=== PATIENT | male | born 1970 | race African-American/Black ===

== ENCOUNTER 2019-10-23 17:15 | Emergency (ER) | payer OTHER ==
[~2019-10-23] VITALS: Ht 175.3 cm; Wt 74.6 kg
--- NOTE | 2019-10-23 18:26 | PHYS DOC ---
Past Medical History Past Medical History: Other Additional Past Medical Histor: multiple back injuries Past Surgical History: Other Additional Past Surgical Histo: back surgery x2, neck surgery Smoking Status: Current Every Day Smoker Additional Information: 4-5 cigarettes daily Alcohol Use: Occasionally General Adult EDM: Chief Complaint: PAIN CONTROL HPI: HPI: Patient is a 49 year old male who presents with complaint of right buttock pain that started yesterday. He states that he has pain that radiates down his right leg to his calf. He states that he has had recurrent flareups of this pain over the last several years. He has had numerous injuries to his lower back and tailbone in the past. Patient rates pain as very mild if he is just lying still but when he tries to move his right leg, he has a bolt pain that goes through the buttock. He describes it as almost like a sharp stab mixed with lightening going through the buttock. Patient states that he has been taking 800 of ibuprofen at a time and states that usually the pain is better but as soon as it wears off the pain is severe again. [] Review of Systems: Review of Systems: Constitutional: Denies fever or chills. [] Respiratory: Denies cough or shortness of breath. [] Cardiovascular: Denies chest pain or edema. [] Musculoskeletal: Complains of right buttock and lower back pain. [] : Complains of right testicle pain. [] Neurologic: Denies headache, focal weakness or sensory changes. [] Heart Score: Risk Factors: Risk Factors: DM, Current or recent (<one month) smoker, HTN, HLP, family history of CAD, obesity. Risk Scores: Score 0 - 3: 2.5% MACE over next 6 weeks - Discharge Home Score 4 - 6: 20.3% MACE over next 6 weeks - Admit for Clinical Observation Score 7 - 10: 72.7% MACE over next 6 weeks - Early Invasive Strategies Current Medications: Current Medications Medications (Trade) Dose Ordered Sig/Zenaida Start Time Stop Time Status Last Admin Dose Admin Dexamethasone Sodium Phosphate (Decadron) 10 mg 1X ONCE 10/23/19 18:30 10/23/19 18:31 Ketorolac Tromethamine (Toradol Im) 60 mg 1X ONCE 10/23/19 18:30 10/23/19 18:31 Orphenadrine Citrate (Norflex) 60 mg 1X ONCE 10/23/19 18:30 10/23/19 18:31 Allergies: Allergies: Allergies Coded Allergies Type Severity Reaction Last Updated Verified No Known Drug Allergies 10/23/19 No Physical Exam: PE: Constitutional: Well developed, well nourished, no acute distress, non-toxic appearance. [] HENT: Normocephalic, atraumatic, bilateral external ears normal, oropharynx moist, no oral exudates, nose normal. [] Eyes: PERRLA, EOMI, conjunctiva normal, no discharge. [] Neck: Normal range of motion, no tenderness, supple, no stridor. [] Cardiovascular: Regular rate and rhythm [] Lungs & Thorax: Bilateral breath sounds clear to auscultation [] Abdomen: Bowel sounds normal, soft, no tenderness. [] Skin: Warm, dry, no erythema, no rash. [] Extremities: No tenderness, no cyanosis, no clubbing, ROM intact. [] Neurologic: Alert and oriented X 3, no focal deficits noted. [] Current Patient Data: Vital Signs: Vital Signs Date Time Temp Pulse Resp B/P (MAP) Pulse Ox O2 Delivery O2 Flow Rate FiO2 10/23/19 17:30 98.1 74 16 145/87 (106) 100 Room Air 98.1 EKG: EKG: [] Radiology/Procedures: Radiology/Procedures: [] Impression: PROCEDURE: TESTICULAR/SCROTUM Testicular ultrasound History: Reason: right testicular pain / Comparison: None. Technique: Multiple grayscale, color flow Doppler and Doppler spectral analysis images of the scrotum are obtained. Findings: Right testicle measures 4.6 x 2.9 x 2 cm. Right testicle demonstrates normal parenchymal echogenicity. The right epididymis is unremarkable. Left testicle measures 4.3 x 2.8 x 1.8 cm. Left testicle demonstrates normal parenchymal echogenicity. The left epididymis is unremarkable. There is no hydrocele. There is mild right varicocele. There is no left varicocele. Scrotal hyperemia or swelling are not seen. Doppler imaging demonstrates normal flow to both testicles, without evidence of torsion. IMPRESSION: 1. No evidence of testicular mass or torsion. 2. Mild right varicocele. Electronically signed by: Ramu Farley MD (10/23/2019 6:55 PM) [facility] Course & Med Decision Making: Course & Med Decision Making Pertinent Labs and Imaging studies reviewed. (See chart for details) [] Sabino Disclaimer: Dragon Disclaimer: This electronic medical record was generated, in whole or in part, using a voice recognition dictation system. Departure Departure Impression: Primary Impression: Acute exacerbation of chronic low back pain Additional Impressions: Sciatica Qualified Codes: M54.31 - Sciatica, right side Sacroiliitis Varicocele Disposition: HOME, SELF-CARE Condition: STABLE Referrals: NO PCP (PCP) Patient Instructions: Back Pain, Adult, Form - Excuse from Work, School, or Physical Activity, Sciatica Scripts Indomethacin (INDOMETHACIN) 50 Mg Capsule 1 CAP PO TID PRN for PAIN for 10 Days, #30 CAP 0 Refills with food Prov: GUERRERO WADSWORTH Jr. DO 10/23/19 Prednisone (PREDNISONE) 50 Mg Tablet 1 TAB PO DAILY, #5 TAB Prov: GUERRERO WADSWORTH Jr. DO 10/23/19 Orphenadrine Citrate (ORPHENADRINE CITRATE) 100 Mg Tablet.er 1 TAB PO BID PRN for MUSCLE SPASMS, #14 TAB Prov: GUERRERO WADSWORTH Jr. DO 10/23/19 Hydrocodone/Apap 5-325 (NORCO 5-325 TABLET) 1 Each Tablet 1-2 EACH PO PRN Q6HRS PRN for PAIN, #15 as needed for pain Prov: GUERRERO WADSWORTH Jr. DO 10/23/19 Justicifation of Admission Dx: Justifications for Admission: Justification of Admission Dx: N/A GUERRERO WADSWORTH Jr. DO Oct 23, 2019 18:26
[2019-10-23 18:30] VITALS: BP_DIAS 105
[2019-10-23] MEDS ORDERED: ORPHENADRINE CITRATE 60 MG/2 ML VIAL. IM ONE (18:30)
[2019-10-23] MEDS ORDERED: DEXAMETHASONE SOD PHOS 20 MG/5 ML VIAL. IM ONE (18:30)
[2019-10-23] MEDS ORDERED: KETOROLAC 60 MG/2 ML VIAL. IM ONE (18:30)
--- NOTE | 2019-10-23 18:57 | RAD ---
Testicular ultrasound History: Reason: right testicular pain / Comparison: None. Technique: Multiple grayscale, color flow Doppler and Doppler spectral analysis images of the scrotum are obtained. Findings: Right testicle measures 4.6 x 2.9 x 2 cm. Right testicle demonstrates normal parenchymal echogenicity. The right epididymis is unremarkable. Left testicle measures 4.3 x 2.8 x 1.8 cm. Left testicle demonstrates normal parenchymal echogenicity. The left epididymis is unremarkable. There is no hydrocele. There is mild right varicocele. There is no left varicocele. Scrotal hyperemia or swelling are not seen. Doppler imaging demonstrates normal flow to both testicles, without evidence of torsion. IMPRESSION: 1. No evidence of testicular mass or torsion. 2. Mild right varicocele. Electronically signed by: Ramu Farley MD (10/23/2019 6:55 PM) [facility]
[2019-10-23 19:19] LABS: BILIRUBIN,URINE NEGATIVE (NEG); CLARITY,URINE CLEAR; COLOR,URINE YELLOW; NITRITE,URINE NEGATIVE (NEG); PH,URINE 6.5 (<5.0-8.0); PROTEIN,URINE NEGATIVE (NEG-TRACE); UROBILINOGEN,URINE 0.2 mg/dL (0.2 mg/dL)
[2019-10-23 19:27] LABS: BACTERIA,URINE 0 /HPF (0-FEW); RBC,URINE 0 /HPF (0-2); WBC,URINE RARE /HPF (0-4)
[2019-10-23 19:30] VITALS: BP_SYST 139
[2019-10-23] MEDS ORDERED: PRED50TA PO (20:18)
[2019-10-23] MEDS ORDERED: INDO50CA15 PO (20:18)
[2019-10-23] MEDS ORDERED: ORPH100T PO (20:18)
[2019-10-23] MEDS ORDERED: HYDR-3164 PO (20:18)
== END 2019-10-23 20:39 | disposition home or self-care (01) ==
LOC: ER 17:15
DX: G89.29 Other chronic pain (principal); M54.41 Lumbago with sciatica, right side; M46.1 Sacroiliitis, not elsewhere classified; I86.1 Scrotal varices; F17.210 Nicotine dependence, cigarettes, uncomplicated; Z98.890 Other specified postprocedural states
CPT/HCPCS: 76870; 81001; 87086; 96372; 99284; J1100; J1885; J2360

== ENCOUNTER → 2019-11-09 | Outpatient (CLI) | payer OTHER ==
[2019-10-23 18:30] VITALS: BP_DIAS 105
[2019-10-23 19:30] VITALS: BP_SYST 139
[~2019-11-09] MED LIST: HYDR-3164 PO; INDO50CA15 PO; ORPH100T PO; PRED50TA PO
--- NOTE | 2019-11-09 14:29 | KCIC ---
EXAM: Right hip, 2 views. HISTORY: Pain. COMPARISON: None. FINDINGS: 2 views of the right hip are obtained. There is no fracture, dislocation or subluxation. IMPRESSION: No acute osseous finding. Electronically signed by: Starla Shah MD (11/09/2019 2:26 PM) [id number]
== END ==
LOC: KCIC 13:24
PROVIDERS: ATTEND Family Medicine
DX: M25.551 Pain in right hip (principal)
CPT/HCPCS: 73502

== ENCOUNTER 2019-11-20 22:45 | Emergency (ER) | payer OTHER ==
[~2019-11-20] VITALS: Ht 175.3 cm; Wt 76.3 kg
[2019-11-20 23:26] LABS: BASO # 0.1 x10^3/uL (0.0-0.2); BASO % 1 % (0-3); EOS # 0.1 x10^3/uL (0.0-0.7); EOS % 2 % (0-3); HEMATOCRIT 38.7 % (39.0-53.0); LYMPH # 1.8 x10^3/uL (1.0-4.8); LYMPH % 30 % (24-48); MEAN CORPUSCULAR HEMOGLOBIN 31 pg (25-35); MEAN CORPUSCULAR HGB CONC 34 g/dL (31-37); MEAN CORPUSCULAR VOLUME 93 fL (79-100); MONO # 0.5 x10^3/uL (0.0-1.1); MONO % 8 % (0-9); NEUT # 3.5 x10^3/uL (1.8-7.7); NEUT % 59 % (31-73); PLATELET COUNT 247 x10^3/uL (140-400); RED BLOOD COUNT 4.16 x10^6/uL (4.30-5.70); RED CELL DISTRIBUTION WIDTH 12.4 % (11.5-14.5); WHITE BLOOD COUNT 5.9 x10^3/uL (4.0-11.0)
[2019-11-20] MEDS ORDERED: IV NORMAL SALINE 1000ML BAG 1,000 ML IV ONE (23:30)
[2019-11-20 23:42] LABS: CALCIUM 8.6 mg/dL (8.5-10.1); CREATININE 1.2 mg/dL (0.7-1.3); GFR 78.2; POTASSIUM 3.8 mmol/L (3.5-5.1)
[2019-11-20] MEDS ORDERED: CONTRAST GIVEN. MC PRN (23:45)
[2019-11-20 23:48] LABS: ALBUMIN 3.9 g/dL (3.4-5.0); ALBUMIN/GLOBULIN RATIO 1.1 (1.0-1.7); TOTAL BILIRUBIN 0.5 mg/dL (0.2-1.0); TOTAL PROTEIN 7.3 g/dL (6.4-8.2)
[2019-11-21] MEDS ORDERED: IOHEXOL 300 MG/ML 100ML VIAL. IV ONE (00:30)
--- NOTE | 2019-11-21 00:32 | PHYS DOC ---
Past Medical History Past Medical History: Other Additional Past Medical Histor: multiple back injuries Past Surgical History: Other Additional Past Surgical Histo: back surgery x2, neck surgery Smoking Status: Current Some Day Smoker Alcohol Use: Occasionally General Adult EDM: Chief Complaint: GROIN PAIN HPI: HPI: Patient is a 49 year old male presenting to the ED with a chief complaint of right groin pain. Patient states the pain is been present for the last 1-1/2 mo nths. Patient was seen in the ER October 19 and had an ultrasound which showed a right varicocele. Patient also was seen on 08 November and had a negative hip x- ray. Patient today complains of pain near the rectal area. Patient denies dysuria, penile discharge, and inguinal hernia. Patient denies any obvious injury.. Patient does have that he has a remote injury when his horse fell onto him. Review of Systems: Review of Systems: Constitutional: Denies fever or chills. [] Eyes: Denies change in visual acuity. [] HENT: Denies nasal congestion or sore throat. [] Respiratory: Denies cough or shortness of breath. [] Cardiovascular: Denies chest pain or edema. [] GI: Denies abdominal pain, nausea, vomiting, bloody stools or diarrhea. [] : Denies dysuria. [] Musculoskeletal: Complains of right groin pain Heart Score: Risk Factors: Risk Factors: DM, Current or recent (<one month) smoker, HTN, HLP, family history of CAD, obesity. Risk Scores: Score 0 - 3: 2.5% MACE over next 6 weeks - Discharge Home Score 4 - 6: 20.3% MACE over next 6 weeks - Admit for Clinical Observation Score 7 - 10: 72.7% MACE over next 6 weeks - Early Invasive Strategies Current Medications: Current Medications Medications (Trade) Dose Ordered Sig/Zenaida Start Time Stop Time Status Last Admin Dose Admin Info (CONTRAST GIVEN -- Rx MONITORING) 1 each PRN DAILY PRN 11/20/19 23:45 11/22/19 23:44 Iohexol (Omnipaque 300 Mg/ml) 75 ml 1X ONCE 11/21/19 00:30 11/21/19 00:31 11/21/19 00:13 75 ML Sodium Chloride 1,000 ml @ 1,000 mls/hr 1X ONCE 11/20/19 23:30 11/21/19 00:29 11/20/19 23:18 1,000 MLS/HR Allergies: Allergies: Allergies Coded Allergies Type Severity Reaction Last Updated Verified No Known Drug Allergies 10/23/19 No Physical Exam: PE: Constitutional: Well developed, well nourished, no acute distress, non-toxic appearance. [] HENT: Normocephalic, atraumatic Eyes: EOMI Neck: Normal range of motion Respiratory: No respiratory distress Abdomen: Bowel sounds normal, soft, no tenderness Rectal exam. Patient complains of pain right lateral to the anal region. No swelling, abscess palpated. Extremities: No tenderness, ROM intact Neurologic: Alert and oriented X 3 Current Patient Data: Labs: Laboratory Tests Test 11/20/19 23:15 White Blood Count 5.9 x10^3/uL (4.0-11.0) Red Blood Count 4.16 x10^6/uL (4.30-5.70) L Hemoglobin 13.0 g/dL (13.0-17.5) Hematocrit 38.7 % (39.0-53.0) L Mean Corpuscular Volume 93 fL (79-100) Mean Corpuscular Hemoglobin 31 pg (25-35) Mean Corpuscular Hemoglobin Concent 34 g/dL (31-37) Red Cell Distribution Width 12.4 % (11.5-14.5) Platelet Count 247 x10^3/uL (140-400) Neutrophils (%) (Auto) 59 % (31-73) Lymphocytes (%) (Auto) 30 % (24-48) Monocytes (%) (Auto) 8 % (0-9) Eosinophils (%) (Auto) 2 % (0-3) Basophils (%) (Auto) 1 % (0-3) Neutrophils # (Auto) 3.5 x10^3/uL (1.8-7.7) Lymphocytes # (Auto) 1.8 x10^3/uL (1.0-4.8) Monocytes # (Auto) 0.5 x10^3/uL (0.0-1.1) Eosinophils # (Auto) 0.1 x10^3/uL (0.0-0.7) Basophils # (Auto) 0.1 x10^3/uL (0.0-0.2) Sodium Level 140 mmol/L (136-145) Potassium Level 3.8 mmol/L (3.5-5.1) Chloride Level 105 mmol/L (98-107) Carbon Dioxide Level 25 mmol/L (21-32) Anion Gap 10 (6-14) Blood Urea Nitrogen 14 mg/dL (8-26) Creatinine 1.2 mg/dL (0.7-1.3) Estimated GFR (Cockcroft-Gault) 78.2 BUN/Creatinine Ratio 12 (6-20) Glucose Level 100 mg/dL (70-99) H Calcium Level 8.6 mg/dL (8.5-10.1) Total Bilirubin 0.5 mg/dL (0.2-1.0) Aspartate Amino Transferase (AST) 32 U/L (15-37) Alanine Aminotransferase (ALT) 43 U/L (16-63) Alkaline Phosphatase 90 U/L (46-116) Total Protein 7.3 g/dL (6.4-8.2) Albumin 3.9 g/dL (3.4-5.0) Albumin/Globulin Ratio 1.1 (1.0-1.7) Laboratory Tests 11/20/19 23:15 Laboratory Tests 11/20/19 23:15 Vital Signs: Vital Signs Date Time Temp Pulse Resp B/P (MAP) Pulse Ox O2 Delivery O2 Flow Rate FiO2 11/20/19 22:50 98.5 67 18 159/89 (112) 100 Room Air 98.5 EKG: EKG: [] Radiology/Procedures: Radiology/Procedures: [] Impression: CT PELVIS CT PELVIS W/CONTRAST History: Reason: RIGHT GROIN PAIN / Spl. Instructions: / History: Comparison: None. Technique: After administration of intravenous contrast, helical CT of the pelvis was performed. Coronal and sagittal reconstructions were obtained. 75 mL of Omnipaque 300 were used. One or more of the following dose reduction techniques were utilized: Automated exposure control (AEC), Adjustment of mA and/or kV according to patient size, Use of iterative reconstruction technique such as ASiR, CT scan done according to ALARA and image gently/image wisely Findings: Visualized bowel is normal. Normal bladder. No pelvic lymphadenopathy. No pelvic free fluid. Visualized abdominal aorta is normal in caliber. No acute osseous abnormality. Right iliacus intramuscular lipoma. No fluid collection. IMPRESSION: No acute findings. Course & Med Decision Making: Course & Med Decision Making Pertinent Labs and Imaging studies reviewed. (See chart for details) Ordered labs, UA, CT of the pelvis with IV contrast Labs are within normal limits. UA does not show UTI. CT of the pelvis shows no acute abnormality. Patient to follow-up with general surgery as an outpatient. Patient asking for pain medication to go home with. Discussed results and plan of care with patient. Patient is instructed to follow up with PCP in one to 2 days. Appropriate discharge instructions given to patient to return to the ED or to seek immediate medical evaluation. Patient is instructed to return to the ED if symptoms worsen or if any concerns. Dragon Disclaimer: Dragon Disclaimer: This electronic medical record was generated, in whole or in part, using a voice recognition dictation system. Departure Departure Impression: Primary Impression: Groin pain Disposition: 01 HOME, SELF-CARE Condition: STABLE Referrals: Erum PERES MD (PCP) STELLA AN MD PLEASE CALL FOR APPOINTMENT Patient Instructions: Groin Strain Scripts Hydrocodone/Apap 5-325 (NORCO 5-325 TABLET) 1 Each Tablet 1 EACH PO PRN Q6HRS PRN for PAIN, #15 as needed for pain Prov: MEERA BULLARD DO 11/21/19 Justicifation of Admission Dx: Justifications for Admission: Justification of Admission Dx: MEERA Ramos DO Nov 21, 2019 00:32
--- NOTE | 2019-11-21 00:37 | RAD ---
CT PELVIS W/CONTRAST History: Reason: RIGHT GROIN PAIN / Spl. Instructions: / History: Comparison: None. Technique: After administration of intravenous contrast, helical CT of the pelvis was performed. Coronal and sagittal reconstructions were obtained. 75 mL of Omnipaque 300 were used. One or more of the following dose reduction techniques were utilized: Automated exposure control (AEC), Adjustment of mA and/or kV according to patient size, Use of iterative reconstruction technique such as ASiR, CT scan done according to ALARA and image gently/image wisely Findings: Visualized bowel is normal. Normal bladder. No pelvic lymphadenopathy. No pelvic free fluid. Visualized abdominal aorta is normal in caliber. No acute osseous abnormality. Right iliacus intramuscular lipoma. No fluid collection. IMPRESSION: No acute findings. Electronically signed by: Filiberto Patterson MD (11/21/2019 12:34 AM) [facility]
[2019-11-21 00:39] LABS: BILIRUBIN,URINE NEGATIVE (NEG); CLARITY,URINE CLEAR; COLOR,URINE YELLOW; NITRITE,URINE NEGATIVE (NEG); PROTEIN,URINE NEGATIVE (NEG-TRACE)
[2019-11-21 00:43] LABS: SQUAMOUS EPITHELIAL CELL,UR FEW /LPF
[2019-11-21 00:44] LABS: BACTERIA,URINE 0 /HPF (0-FEW); RBC,URINE 0 /HPF (0-2); WBC,URINE OCC /HPF (0-4)
[2019-11-21 00:47] VITALS: BP 158/94
[2019-11-21] MEDS ORDERED: HYDR-3164 PO (00:55)
== END 2019-11-21 01:04 | disposition home or self-care (01) ==
LOC: ER 22:45
DX: R10.31 Right lower quadrant pain (principal); F17.200 Nicotine dependence, unspecified, uncomplicated; Z98.890 Other specified postprocedural states
CPT/HCPCS: 36415; 72193; 80053; 81001; 85025; 99285; J7030; Q9967

== ENCOUNTER → 2019-12-20 | Outpatient (CLI) | payer OTHER ==
[2019-11-21 00:47] VITALS: BP 158/94
[~2019-12-20] MED LIST changes: +BUPIVACAINE MPF 0.5% 10 ML VIAL for KCIC. IM ONE; +LIDOCAINE 1% Multi-Dose 20 ML VIAL. ID ONE; +methylPREDNISolone ACETATE 40 MG/ML VIAL. IM ONE
--- NOTE | 2019-12-20 17:25 | KCIC ---
EXAM: Right piriformis injection WITH Ultrasound guidance DATE: 12/20/2019 10:15 AM CLINICAL HISTORY: Piriformis syndrome of Right side COMPARISON: None pertinent TECHNIQUE: The patient was informed of the indications and alternatives for this procedure as well as risks and benefits. No immediate contraindication identified. The patient provided informed, written consent. Laterality was confirmed by the entire team following a time out. Following initial right piriformis localization, a suitable area was sterilely prepped and draped. Local anesthesia was administered with 1% xylocaine. With continuous ultrasound observation, a 22-gauge spinal needle was advanced into the right piriformis sheath/capsule with confirmation of position with small volume focal lidocaine 1 percent injection. Subsequent infusion solution containing 5 mL lidocaine 1 percent, 5 mL bupivacaine 0.5 percent and 40 mg Depo-Medrol. Hemostasis with local pressure. Local clinical exam negative for immediate complication. The patient reported no weakness in the right lower extremity. Patient informed re local potential signs or symptoms that may indicate need to return to ER/Ordering physician for further evaluation. Patient informed re precautionary measures after intra-synovial injection of anesthetic. Patient informed re potential for short term increase local symptomatology due to steroid flare. Patient expressed understanding. Performing Physicians: Dr. Doreen Rider Blood Loss: 0 cc Pre-procedural Pain Scale: 1-2 Post-procedural Pain Scale: 0 IMPRESSION: Successful right piriformis injection with steroid and anesthetic. Electronically signed by: Emmanuel Rider MD (12/20/2019 5:22 PM) [id number]
== END | disposition home or self-care (01) ==
LOC: KCIC US 10:11
PROVIDERS: ATTEND Family Medicine
DX: G47.01 Insomnia due to medical condition (principal); Z79.899 Other long term (current) drug therapy
CPT/HCPCS: 20611; J1030; J3490; 76942

== ENCOUNTER → 2020-07-10 | Outpatient (CLI) | payer OTHER ==
[~2020-07-10] MED LIST changes: -BUPIVACAINE MPF 0.5% 10 ML VIAL for KCIC. IM ONE; -LIDOCAINE 1% Multi-Dose 20 ML VIAL. ID ONE; +OXYC1TAB19 PO; -methylPREDNISolone ACETATE 40 MG/ML VIAL. IM ONE
--- NOTE | 2020-07-10 12:49 | PDOC1 ---
INITIAL PAIN CONSULT DATE OF SERVICE: DOS: DATE: 07/10/20 TIME: 12:42 CHIEF COMPLAINT: Chief Complaint: Low back and right lower extremity pain HISTORY OF PRESENT ILLNESS: 50-year-old male presents history of pain low back right lower extremity rating the posterior gluteus posterior lateral thigh posterior calf into the groin at times as well on the right side. Patient reports this began in 2010 when he lesia pped into a hole on some uneven ground and ninoska his right leg and hip and low back patient reports that in 2014 he was thrown backwards from a horse as well which exacerbated the pain even further. Patient reports the pain has been there since 2010 in varying degrees of severity and is now becoming much worse over the past year or so. Patient reports no recent injury but significant pain the low back and the right lower extremity also in the posterior gluteus and thigh also the calf and some in the groin and anterior thigh on the right side as well. Patient has had no diagnostic studies recently did undergo a right piriformis muscle injection December 2019 which was helpful but only temporarily. Patient reports pain is constant sharp stabbing throbbing and shooting radiating the right leg is noted changes with activity worse with walking standing changing positions wakes him from sleep about once every 1-2 hours patient reports it can affect his bowel bladder control but does not have any incontinence just increased frequency patient reported does affect his ability to walk and he is not use any assistive devices currently to ambulate with. Patient has had chiropractic treatment as well as doing exercise and physical therapies in the past he still does exercise with those about every other day during most weeks. Patient is taking naproxen also oxycodone which helps the pain but only very temporarily. Patient reports his disability rating 0-10 10 being worst is a 7 with him home with possibilities 9 with recreational activities 8 with social activity occupation to with sexual behavior 8 with self-care and 0 with life support activities. PAST MEDICAL HISTORY: PMH: Cigarette smoking; arthritis PREVIOUS SURGERIES: Past Surgical Hx: Bone graft right arm 2002, right knee meniscus repair, right rotator cuff repair, lumbar laminectomy 2013 CURRENT MEDICATIONS: Current Meds: Active Scripts Medications Dose Route/Sig Max Daily Dose Days Date Category Dose Instructions Percocet 7.5-325 Mg Tablet (Oxycodone/Acetaminophen) 1 Each Tablet 1 Tab PO PRN Q6HRS PRN 07/10/20 Reported Indomethacin 50 Mg Capsule 1 Cap PO TID PRN 10 10/23/19 Rx with food ALLERGIES; Allergies: Coded Allergies: No Known Drug Allergies (Unverified , 10/23/19) FAMILY HISTORY: Family Hx: Diabetes SOCIAL HISTORY: Social Hx: Patient smokes less than 1 pack a day has been past 10 years. 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 REVIEW OF SYSTEMS: ROS: Positive for those items mentioned in history of present illness, all systems are reviewed, otherwise negative ,and are complete full and well-documented on patient's chart. PHYSICAL EXAM: VS: Blood pressure is 133/92 pulse 64 respirations 18 temperature is 98.1 F height 5 feet 9 inches weight is 168 pounds PE: PHYSICAL EXAMINATION: GENERAL: The patient is awake, alert, oriented, appropriate, very pleasant demeanor HEENT: Shows normocephalic, atraumatic. Extraocular movements are intact and symmetrical. Oral cavity: Mucous membranes moist and pink. Dentition is intact. NECK: Shows anterior throat supple without palpable lymphadenopathy noted. Swallow reflex symmetrical. CHEST: Shows normal on inspection. Breath sounds are clear bilaterally, no rales rhonchi wheezes auscultated. HEART: Shows S1, S2 clear. No murmurs auscultated. ABDOMEN: Soft, nontender, nondistended, obese. No palpable organomegaly is noted. No rebound or guarding demonstrated. BACK: Shows spine grossly in the midline. Normal-appearing cervical lordotic curvature. There is slightly increased thoracic kyphosis, some minor flattening of the lumbar lordotic curvature. Well-healed surgical scar noted in the midline in the lumbar distribution. Lumbar paraspinous muscles show symmetrical on inspection, on palpation shows some moderate tenderness diffusely throughout the upper, middle and lower distribution of the paraspinous muscles bilaterally and also into the lower thoracic paraspinous musculature, firm and tender, but without specific trigger points, without radiation of pain. The patient has good rotational motion of the lumbar spine, both laterally as well as extension and flexion without significant difficulty. No tenderness over the spinous processes, sacrum or sacroiliac regions. EXTREMITIES: Lower extremities show deep tendon reflexes 2+ in the patellar and tendo calcaneus tendons. Motor exam is 4 on a scale of 5 with right dorsiflexion, extension, quadriceps and hamstring flexion and 5/5 on the left. Peripheral pulses are 1+ posterior tibial. No peripheral edema is noted bilaterally. Lower extremities are warm and dry to touch, equal in color and appearance. Straight leg raise noted to be positive on the right about 40 degrees, left side is negative. Gaenslen's and Luke's maneuvers are negative as well. The patient is able to stand, stand on her toes walks with a slightly favoring gait does appear to limp favoring the right lower extremity but not use any assistive device such as canes or walkers to ambulate. SKIN: Shows warm and dry, good turgor. No edema. No sores, rashes or bruising throughout. IMPRESSION: Impression: 50-year-old male with long history of injury to low back right lower extremity status post lumbar laminectomy with persistent pain right lower extremity consistent with radiculopathy also with right piriformis syndrome significant tenderness over the right piriformis muscle on exam reproducing radiation. Cigarette smoking Arthritis Plan: Options were discussed with patient including conservative medical management physical therapies interventional techniques. He like to pursue interventional techniques. We discussed a right sided piriformis injection using description as well as anatomical models to describe the procedure. Patient like to proceed wait for preauthorization with his insurance provider first once this is obtained we will have him return for right piriformis injection with fluoroscopic guidance. In the meantime patient will continue with stretching strength exercises working out as best his ability and analgesics orally as currently. REECE RANDALL MD Jul 10, 2020 12:49
== END | disposition home or self-care (01) ==
LOC: PNCL 10:28
PROVIDERS: ATTEND Anesthesiology
DX: M54.5 Low back pain (principal); M79.604 Pain in right leg; M19.90 Unspecified osteoarthritis, unspecified site; F17.210 Nicotine dependence, cigarettes, uncomplicated; Z79.899 Other long term (current) drug therapy; Z98.890 Other specified postprocedural states; Z72.89 Other problems related to lifestyle
CPT/HCPCS: 99205; G0463

== ENCOUNTER → 2020-07-24 | Outpatient (CLI) | payer OTHER ==
[~2020-07-24] MED LIST changes: +BUPIVACAINE MPF 0.25% 10 ML VIAL. ONE; +IOHEXOL 180 MG/ML 10 ML VIAL. ONE; +methylPREDNISolone ACETATE 80 MG/ML VIAL. ONE
--- NOTE | 2020-07-24 10:43 | PDOC ---
Progress Note - Pain Clinic Date of Service: DOS: DATE: 07/24/20 TIME: 10:39 Diagnosis: Dx: Right piriformis syndrome Lumbar radiculopathy with lumbar postlaminectomy syndrome History or Present Illness: HPI: 50-year-old male returns to follow-up status post initial evaluation and preauthorization for right piriformis injection. Patient reports still significant pain in the right hip and leg rating the posterior gluteus posterior thigh and into the posterior calf patient reports is worse with walking standing changing positions also awakening from sleep about every 3-4 hours. Patient can usually reposition to get back to sleep but is disturbing his sleep significantly. Patient reports worse with walking and weightbearing rates his pain is a 9 on scale 10 is worse over the past week 9 on average 9 at its least is a 9 today. Patient scribes pain is radiating constant tingling burning cramping stabbing aching tight and shooting as well as sharp pain in the right gluteus and thigh. Patient has an MRI scan scheduled for 29 July for the lumbar spine as well. Patient reports no new motor or sensory deficits no new bowel or bladder incontinence. Physical Exam: VS: Blood pressure is 119/74 pulse 72 respirations 18 temperature 98.1 F height is 5 feet 9 inches weight is 128 pounds PE: PHYSICAL EXAMINATION: GENERAL: The patient is awake, alert, oriented, appropriate, very pleasant demeanor HEENT: Shows normocephalic, atraumatic. Extraocular movements are intact and symmetrical. Oral cavity: Mucous membranes moist and pink. NECK: Shows anterior throat supple without palpable lymphadenopathy noted. Swallow reflex symmetrical. CHEST: Shows normal on inspection. Breath sounds are clear bilaterally. HEART: Shows S1, S2 clear. No murmurs auscultated. ABDOMEN: Soft, nontender, nondistended, flat. No palpable organomegaly is noted. BACK: Shows spine grossly in the midline. Normal-appearing cervical lordotic curvature. There is slightly increased thoracic kyphosis, some minor flattening of the lumbar lordotic curvature. Lumbar paraspinous muscles show symmetrical on inspection, on palpation shows some moderate tenderness diffusely throughout the upper, middle and lower distribution of the paraspinous muscles without specific trigger points, without radiation of pain. The patient has good rotational motion of the lumbar spine, both laterally as well as extension and flexion without significant difficulty. Patient has significant pain with palpation over the inferior lateral aspect of the gluteus just superior to the ischial tuberosity with radiation into the posterior thigh mildly. No tenderness over the spinous processes, sacrum or sacroiliac regions. EXTREMITIES: Lower extremities show deep tendon reflexes 2+ in the patellar and tendo calcaneus tendons. Motor exam is 4 on a scale of 5 with right dorsiflexion, extension, quadriceps and hamstring flexion and 5/5 on the left. Peripheral pulses are 1+ posterior tibial. No peripheral edema is noted bilaterally. Lower extremities are warm and dry to touch, equal in color and appearance. SKIN: Shows warm and dry, good turgor. No edema. No sores, rashes or bruising throughout. Procedure: Procedure: Options discussed with patient. Patient chart reviews his current medication regimen updated current review of systems updated today as well. We will proceed with a right piriformis injection today with fluoroscopic guidance. Risk were discussed including but not limited to bleeding infection possibility of intravascular injection sequelae spread local anesthetic numbness side effects of steroid medication special fluoroscopy and portal scarring pain control. Patient understands wished to proceed. Patient will return to clinic in approximately 2 weeks for follow-up, was counseled as return appointment activity level and side effects to be aware of. Once again MRI scan is ordered and will be performed on July 29, 2020. Medication Injected: Med Injected: Under sterile prep and drape patient in left lateral decubitus position using C- arm fluoroscopic guidance 22-gauge needle was used after local topical anesthesia to enter into the right piriformis with direct visualization with fluoroscopy. Aspiration was noted to be negative and 1.5 cc of contrast was injected with good spread within the muscle body itself without washout or uptake. At this time solution of 3 cc 0.25% bupivacaine and 80 mg of Depo- Medrol was then injected needle was removed and sterile bandage was applied. Patient tolerated procedure well and had no complications. Condition at Discharge: Condition at Discharge: Condition at discharge stable, patient noted procedure well and had no complications. REECE RANDALL MD Jul 24, 2020 10:43
--- NOTE | 2020-07-24 10:43 | PDOC4 ---
PROCEDURE Procedure Patient was consented for right piriformis injection with fluoroscopic guidance. Risks were discussed including but not limited to bleeding infection possibility of intravascular injection sequelae spread to local anesthetic and numbness side effects steroid medication special fluoroscopy and portals rating pain control. Patient understands wished to proceed. Under sterile prep and drape patient in left lateral decubitus position using C- arm fluoroscopic guidance 22-gauge needle was used after local topical anesthesia to enter into the right piriformis with direct visualization with fluoroscopy. Aspiration was noted to be negative and 1.5 cc of contrast was injected with good spread within the muscle body itself without washout or uptake. At this time solution of 3 cc 0.25% bupivacaine and 80 mg of Depo- Medrol was then injected needle was removed and sterile bandage was applied. Patient tolerated procedure well and had no complications. REECE RANDALL MD Jul 24, 2020 10:43
== END | disposition home or self-care (01) ==
LOC: PNCL 09:54
PROVIDERS: ATTEND Anesthesiology
DX: G57.01 Lesion of sciatic nerve, right lower limb (principal); M96.1 Postlaminectomy syndrome, not elsewhere classified; F17.210 Nicotine dependence, cigarettes, uncomplicated; Z79.899 Other long term (current) drug therapy; Z72.89 Other problems related to lifestyle
CPT/HCPCS: 20552; 77002; J1040; J3490; Q9965

== ENCOUNTER → 2020-08-11 | Outpatient (CLI) | payer OTHER ==
[~2020-08-11] MED LIST changes: -IOHEXOL 180 MG/ML 10 ML VIAL. ONE
--- NOTE | 2020-08-11 12:06 | PDOC ---
Progress Note - Pain Clinic Date of Service: DOS: DATE: 08/11/20 TIME: 12:02 Diagnosis: Dx: Right piriformis syndrome Lumbar radiculopathy with lumbar postlaminectomy syndrome History or Present Illness: HPI: 50-year-old male returns follow-up status post right piriformis injection on July 24, 2020. Patient reports initially felt better with some pain reduction in the right piriformis itself in the hip but the pain returned quickly after turning to exercise once again patient been working out daily and reports the pain is noticeable with abduction of the right leg as well as flexion extension and lunge exercises patient reports it does slow him down to some extent but he still staying fairly active patient rates the pain as a 9 on scale 10 is worse over the past week 9 on average 9 its least is a 9 today patient cried is aching and sharp can be dull tight shooting in the right lower extremity mostly the posterior gluteus and thigh but some on the lateral calf as well patient reports is tingling and burning cramping at times can be constant in the back and some pain in the lumbar spine as well mostly in the right posterior gluteus and hip and into the thigh as noted. Patient reports that generally is better with sitting or laying down does not awaken from sleep at night much worse with walking standing and exercising. She reports no new bowel or bladder incontinence no other complaints Physical Exam: VS: Blood pressure is 138/86 pulse 83 respirations 18 temperature 98.2 F height is 5 feet 9 inches weight is 168 pounds PE: PHYSICAL EXAMINATION: GENERAL: The patient is awake, alert, oriented, appropriate, very pleasant demeanor HEENT: Shows normocephalic, atraumatic. Extraocular movements are intact and symmetrical. NECK: Shows anterior throat supple without palpable lymphadenopathy noted. Swallow reflex symmetrical. CHEST: Shows normal on inspection. Breath sounds are clear bilaterally, no rales or rhonchi auscultated. HEART: Shows S1, S2 clear. No murmurs auscultated. ABDOMEN: Soft, nontender, nondistended, flat. No palpable organomegaly is noted. No rebound or guarding demonstrated. BACK: Shows spine grossly in the midline. Normal-appearing cervical lordotic curvature. There is slightly increased thoracic kyphosis, some minor flattening of the lumbar lordotic curvature. Well-healed midline surgical scar is noted in the lumbar distribution. Lumbar paraspinous muscles show symmetrical on inspection, on palpation shows some moderate tenderness diffusely throughout the upper, middle and lower distribution of the paraspinous muscles, but without specific trigger points, without radiation of pain. The patient has good rotational motion of the lumbar spine, both laterally as well as extension and flexion without significant difficulty. EXTREMITIES: Lower extremities show deep tendon reflexes 2+ in the patellar and tendo calcaneus tendons. Motor exam is 4 on a scale of 5 with right dorsiflexion, extension, quadriceps and hamstring flexion and 5/5 on the left. Peripheral pulses are 1+ posterior tibial. Right piriformis region shows significant tenderness with palpation over the inferior medial aspect of the gluteus with deeper palpation but without specific radiation. Left side is negative. No peripheral edema is noted bilaterally. Lower extremities are warm and dry to touch, equal in color and appearance. SKIN: Shows warm and dry, good turgor. No edema. No sores, rashes or bruising throughout. Procedure: Procedure: Options were discussed with the patient. Patient chart was reviews his current medication regimen updated current review of systems updated today as well. We will proceed with a repeat right piriformis injection today with fluoroscopic guidance. Risks were discussed including but not limited to bleeding infection possibility of intravascular injection sequelae spread local anesthetic and numbness side effects steroid medication special fluoroscopy and portals regarding pain control. Patient understands wishes to proceed. Patient has MRI scan scheduled for tomorrow morning for the lumbar spine we will review that once obtained and discussed with patient as well. Patient return to clinic in approximate 2 weeks for follow-up was counseled as to return appointment a ctivity level and side effects to be aware of. Medication Injected: Med Injected: Under sterile prep and drape patient in left lateral decubitus position using C- arm fluoroscopic guidance patient's right gluteus was examined with significant tenderness over the inferior medial aspect correlating with the piriformis location. Using 25-gauge 3 inch needle was advanced under direct fluoroscopic vision stylet removed and a 1.5 cc of contrast was injected showing good spread within the body of the piriformis muscle on the right without extravasation or washout. At this time 0.25% bupivacaine 3 cc and 80 mg Depo-Medrol was then injected needle was removed sterile bandage was applied. Patient tolerated procedure well and had no complications. Condition at Discharge: Condition at Discharge: Condition at discharge is stable, patient tolerated procedure well and had no complications. REECE RANDALL MD Aug 11, 2020 12:06
== END | disposition home or self-care (01) ==
LOC: PNCL 11:03
PROVIDERS: ATTEND Anesthesiology
DX: G57.01 Lesion of sciatic nerve, right lower limb (principal); M96.1 Postlaminectomy syndrome, not elsewhere classified; F17.210 Nicotine dependence, cigarettes, uncomplicated; Z79.899 Other long term (current) drug therapy; Z98.890 Other specified postprocedural states
CPT/HCPCS: 20552; 77002; J1040; J3490

== ENCOUNTER → 2020-08-12 | Outpatient (CLI) | payer OTHER ==
[~2020-08-12] MED LIST changes: -BUPIVACAINE MPF 0.25% 10 ML VIAL. ONE; -methylPREDNISolone ACETATE 80 MG/ML VIAL. ONE
--- NOTE | 2020-08-12 10:12 | RAD ---
MRI of the lumbar spine without contrast CLINICAL HISTORY: Right lumbar radiculopathy. TECHNIQUE: Unenhanced T1-weighted and T2-weighted sagittal and axial and inversion recovery sagittal images of the lumbar spine were obtained. FINDINGS: Minimal S-shaped curvature of the thoracolumbar spine is seen. Degenerative signal changes and loss of height are seen involving the L5-S1 discs. Degenerative signal changes are seen within th e marrow surrounding this disc. The conus medullaris is normal morphology, position, and signal heath cteristics. The L1-2 disc space is within normal limits. At the L2-3, L3-4 and L4-5 disc spaces there are minimal to mild generalized disc bulges. Degenerativ e changes are seen involving the facet joints bilaterally. There is mild ligamentum flavum hypertroph y bilaterally. These findings do not result in significant central spinal canal or neural foraminal s tenosis. At the L5-S1 disc space there is a mild generalized disc bulge. Superimposed on this disc bulge is a focal central disc protrusion. This measures 2 mm in AP diameter. Degenerative changes are seen invol ving the facet joints bilaterally. These findings do not result in significant central spinal canal o r neural foraminal stenosis. IMPRESSION: The changes of degenerative disc disease are seen throughout the mid and lower lumbar spi ne. These findings do not result in significant central spinal canal or neural foraminal stenosis. Electronically signed by: Giorgio Weston MD (08/12/2020 10:10 AM) [id number]
== END | disposition home or self-care (01) ==
LOC: MRI 09:20
PROVIDERS: ATTEND Anesthesiology
DX: M51.16 Intervertebral disc disorders with radiculopathy, lumbar region (principal); M48.061 Spinal stenosis, lumbar region without neurogenic claudication; F17.210 Nicotine dependence, cigarettes, uncomplicated; Z79.899 Other long term (current) drug therapy; Z72.89 Other problems related to lifestyle
CPT/HCPCS: 72148; 77002

== ENCOUNTER → 2020-08-20 | Outpatient (CLI) | payer OTHER ==
[~2020-08-20] MED LIST changes: +IOHEXOL 180 MG/ML 10 ML VIAL. ONE; +methylPREDNISolone ACETATE 40 MG/ML VIAL. ONE; +methylPREDNISolone ACETATE 80 MG/ML VIAL. ONE
--- NOTE | 2020-08-20 08:22 | PDOC ---
Progress Note - Pain Clinic Date of Service: DOS: DATE: 08/20/20 TIME: 08:19 Diagnosis: Dx: Lumbar radiculopathy with lumbar postlaminectomy syndrome Right piriformis syndrome History or Present Illness: HPI: 50-year-old male returns follow-up status post right piriformis injection x2 with only minimal decrease in pain and very short-lived pain since has still significant pain in the low back and right lower extremity posterior gluteus posterior thigh posterior calf with shooting pain and some in the right groin as well patient reports it is aching and sharp tight and shooting in the back tingling and burning in the leg cramping and stabbing in the back radiating the lower extremity on the right only can be severe and unbearable with weightbearing standing walking. Patient reports after last injection only helped for maybe a day or so pain returned we ordered an MRI scan lumbar spine went over that with him today showing results of L5-S1 disc base mild generalized disc bulge with a superimposed focal central disc protrusion. Patient reports still significant pain rated as a 10 on scale 10 is worse over the past week 8 on average 8 its least is an 8 today. Patient reports it wakes him sleep at night occasionally not every night reports no new motor or sensory deficits no new bowel or bladder incontinence. Physical Exam: VS: Blood pressure is 120/98 pulse 77 respiration 16 temperature 98.2 F weight is 170 pounds PE: PHYSICAL EXAMINATION: GENERAL: The patient is awake, alert, oriented, appropriate, very pleasant demeanor HEENT: Shows normocephalic, atraumatic. Extraocular movements are intact and symmetrical. Oral cavity: Mucous membranes moist and pink. Dentition is intact. NECK: Shows anterior throat supple without palpable lymphadenopathy noted. Swallow reflex symmetrical. CHEST: Shows normal on inspection. Breath sounds are clear bilaterally, no rales or rhonchi auscultated. HEART: Shows S1, S2 clear. No murmurs auscultated. ABDOMEN: Soft, nontender, nondistended, flat. No palpable organomegaly is noted. No rebound or guarding demonstrated. BACK: Shows spine grossly in the midline. Normal-appearing cervical lordotic curvature. There is slightly increased thoracic kyphosis, some minor flattening of the lumbar lordotic curvature. Lumbar paraspinous muscles show symmetrical on inspection, on palpation shows some moderate tenderness diffusely throughout the upper, middle and lower distribution of the paraspinous muscles without specific trigger points, without radiation of pain. The patient has good rotational motion of the lumbar spine, both laterally as well as extension and flexion without significant difficulty. No tenderness over the spinous processes, sacrum or sacroiliac regions. EXTREMITIES: Lower extremities show deep tendon reflexes 2+ in the patellar and tendo calcaneus tendons. Motor exam is 4 on a scale of 5 with right dorsi flexion, extension, quadriceps and hamstring flexion and 5/5 on the left. Peripheral pulses are 1 posterior tibial. No peripheral edema is noted bilaterally. Lower extremities are warm and dry to touch, equal in color and appearance. SKIN: Shows warm and dry, good turgor. No edema. No sores, rashes or bruising throughout. Procedure: Procedure: Options discussed with patient. Patient chart reviews his current medication regimen updated current review of systems updated today as well. We will proceed with a lumbar epidural steroid injection stable fluoroscopic guidance. Risks were discussed including but not limited to: Bleeding, infection, possibility of epidural hematoma and subsequent neurological compromise, dural puncture, headaches, spinal cord and/or nerve damage, side effects of steroid medication, and poor results regarding pain control. Patient understands and wished to proceed. She will return to the clinic in approximate 2 weeks for follow-up, was counseled as return appointment activity level and side effects to be aware of. Medication Injected: Med Injected: Procedure is lumbar epidural steroid injection under local anesthetic using sterile prep and drape at the L5-S1 level using C-arm fluoroscopic guidance in both AP and lateral views medications injected is 120 mg Depo-Medrol + 10 mL preservative-free normal saline and 2 mL contrast- condition at discharge is stable patient tolerated procedure well had no complications. Condition at Discharge: Condition at Discharge: Condition at discharge stable, patient tolerated procedure well and had no complications. REECE RANDALL MD Aug 20, 2020 08:22
--- NOTE | 2020-08-20 08:23 | PDOC4 ---
PROCEDURE Procedure Patient was consented for lumbar epidural steroid injection. Risks were dis cussed including but not limited to: Bleeding, infection, possibility of epidural hematoma and subsequent neurological compromise, dural puncture, headaches, spinal cord and/or nerve damage, side effects of steroid medication, and poor results regarding pain control. Patient understands and wished to proceed. Procedure is lumbar epidural steroid injection under local anesthetic using sterile prep and drape at the L5-S1 level using C-arm fluoroscopic guidance in both AP and lateral views medications injected is 120 mg Depo-Medrol + 10 mL preservative-free normal saline and 2 mL contrast- condition at discharge is stable patient tolerated procedure well had no complications. REECE RANDALL MD Aug 20, 2020 08:23
== END | disposition home or self-care (01) ==
LOC: PNCL 07:38
PROVIDERS: ATTEND Anesthesiology
DX: M54.16 Radiculopathy, lumbar region (principal); M96.1 Postlaminectomy syndrome, not elsewhere classified; F17.210 Nicotine dependence, cigarettes, uncomplicated; Z79.899 Other long term (current) drug therapy
CPT/HCPCS: 62323; J1030; J1040; Q9965

== ENCOUNTER → 2020-09-03 | Outpatient (CLI) | payer OTHER ==
[~2020-09-03] MED LIST changes: -IOHEXOL 180 MG/ML 10 ML VIAL. ONE; -methylPREDNISolone ACETATE 40 MG/ML VIAL. ONE; -methylPREDNISolone ACETATE 80 MG/ML VIAL. ONE
--- NOTE | 2020-09-03 09:47 | PDOC ---
Progress Note - Pain Clinic Date of Service: DOS: DATE: 09/03/20 TIME: 09:43 Diagnosis: Dx: Lumbar radiculopathy lumbar postlaminectomy syndrome History or Present Illness: HPI: 50-year-old male returns for follow-up status post lumbar epidural to injection x1. Patient reports about 75% improvement initially now about 50% improvement overall after the past few weeks patient was last here August 20, 2020 patient reports is been increase activity with greater ease and comfort walking greater distances doing activities with working outside doing some core exercises with much greater ease and comfort travel with greater ease walking standing doing household activities not awakening from sleep generally rates as 8 on scale 10 is worse over the past week 8 on average 8 its least is 8 today patient reports aching sharp tight dull shooting in the low back and right lower extremity posterior gluteus posterior lateral thigh lateral anterior thigh anteromedial thigh posterior calf and posterior ankle on the right side. Patient reports some tenderness in the low back but still radiating the leg in a radicular fashion. Patient reports it can be constant with activity especially with excessive stair climbing walking and exercising. Patient reports he continues to exercise using a treadmill also doing stretching and strengthening daily as well with fairly good tolerance. Patient reports no new motor or sensory de ficits no new bowel or bladder incontinence. Physical Exam: VS: Blood pressure is 119/70 pulse 81 respirations 16 temperature 98.1 F weight is 169 pounds PE: PHYSICAL EXAMINATION: GENERAL: The patient is awake, alert, oriented, appropriate, very pleasant demeanor HEENT: Shows normocephalic, atraumatic. Extraocular movements are intact and symmetrical. Oral cavity: Mucous membranes moist and pink. Dentition is intact. NECK: Shows anterior throat supple without palpable lymphadenopathy noted. Swallow reflex symmetrical. CHEST: Shows normal on inspection. Breath sounds are clear bilaterally, no rales or rhonchi auscultated. HEART: Shows S1, S2 clear. No murmurs auscultated. ABDOMEN: Soft, nontender, nondistended, flat. No palpable organomegaly is noted. No rebound or guarding demonstrated. BACK: Shows spine grossly in the midline. Normal-appearing cervical lordotic curvature. There is slightly increased thoracic kyphosis, some minor flattening of the lumbar lordotic curvature. Lumbar paraspinous muscles show symmetrical on inspection, on palpation shows some moderate tenderness diffusely throughout the upper, middle and lower distribution of the paraspinous muscles, without specific trigger points, without radiation of pain. The patient has good rotational motion of the lumbar spine, both laterally as well as extension and flexion without significant difficulty. EXTREMITIES: Lower extremities show deep tendon reflexes 2+ in the patellar and tendo calcaneus tendons. Motor exam is 4 on a scale of 5 with right dorsiflexion, extension, quadriceps and hamstring flexion and 5/5 on the left. Peripheral pulses are 1+ posterior tibial. No peripheral edema is noted bilaterally. Lower extremities are warm and dry. SKIN: Shows warm and dry, good turgor. No edema. No sores, rashes or bruising throughout. Procedure: Procedure: Options were discussed with the patient. Patient chart reviewed his current medication regimen updated current review of systems updated today as well. We will preauthorize patient for second lumbar epidural steroid injection as he did very well after the first injection with the pain returning down the low back right lower extremity in an L5-S1 dermatomal distribution. Patient continue with stretching strength exercises also walking running as tolerated and core exercises as tolerated. Patient will wait for preauthorization with his insurance provider once this is obtained we will plan on translaminar approach L5-S1 lumbar epidural steroid injection at that time with fluoroscopic guidance. Medication Injected: Med Injected: None Condition at Discharge: Condition at Discharge: Condition at discharge is stable. REECE RANDALL MD Sep 03, 2020 09:47
== END | disposition home or self-care (01) ==
LOC: PNCL 09:11
PROVIDERS: ATTEND Anesthesiology
DX: M54.16 Radiculopathy, lumbar region (principal); M96.1 Postlaminectomy syndrome, not elsewhere classified; F17.210 Nicotine dependence, cigarettes, uncomplicated; Z79.899 Other long term (current) drug therapy; Z72.89 Other problems related to lifestyle
CPT/HCPCS: 99212; G0463

== ENCOUNTER → 2020-09-17 | Outpatient (CLI) | payer OTHER ==
[~2020-09-17] MED LIST changes: +IOHEXOL 180 MG/ML 10 ML VIAL. ONE; +methylPREDNISolone ACETATE 40 MG/ML VIAL. ONE; +methylPREDNISolone ACETATE 80 MG/ML VIAL. ONE
--- NOTE | 2020-09-17 11:00 | PDOC ---
Progress Note - Pain Clinic Date of Service: DOS: DATE: 09/17/20 TIME: 10:57 Diagnosis: Dx: Lumbar radiculopathy with lumbar postlaminectomy syndrome Right piriformis syndrome History or Present Illness: HPI: 50-year-old male returns follow-up status post lumbar epidural steroid injection x1. Patient reports near 100% improvement for the first 2 weeks or so with the pain returning now and switching size now in the left lower back and left posterior gluteus posterior thigh as it was previously on the right the right is resolved now but the left side is significantly painful with walking standing changing positions better with sitting or laying down but is waking from sleep last 2-3 times at night. Patient reports pain is radiating aching sharp dull tight shooting in the legs tingling and burning mostly on the left side down to stabbing pain as well in the posterior gluteus and posterior thigh that can be constant and severe on and off in intensity again worse with standing walking changing positions but again disturbing his sleep. Patient reports no new motor or sensory deficits no new bowel or bladder cons or other complaints. Patient rates his pain is a 10 on a scale of 10 today Physical Exam: VS: Blood pressure is 138/88 pulse 63 respirations 18 temperature 98.2 F height 5 feet 9 inches weight 167 pounds PE: PHYSICAL EXAMINATION: GENERAL: The patient is awake, alert, oriented, appropriate, very pleasant demeanor HEENT: Shows normocephalic, atraumatic. Extraocular movements are intact and symmetrical. Oral cavity: Mucous membranes moist and pink. Dentition is intact. NECK: Shows anterior throat supple without palpable lymphadenopathy noted. Swallow reflex symmetrical. CHEST: Shows normal on inspection. Breath sounds are clear bilaterally. HEART: Shows S1, S2 clear. No murmurs auscultated. ABDOMEN: Soft, nontender, nondistended. No palpable organomegaly is noted. No rebound or guarding demonstrated. BACK: Shows spine grossly in the midline. Normal-appearing cervical lordotic curvature. There is slightly increased thoracic kyphosis, some minor flattening of the lumbar lordotic curvature. Lumbar paraspinous muscles show symmetrical on inspection, on palpation shows some moderate tenderness diffusely throughout the upper, middle and lower distribution of the paraspinous muscles without specific trigger points, without radiation of pain. The patient has good rotational motion of the lumbar spine, both laterally as well as extension and flexion without significant difficulty. EXTREMITIES: Lower extremities show deep tendon reflexes 2+ in the patellar and tendo calcaneus tendons. Motor exam is 4 on a scale of 5 with right dorsiflexion, extension, quadriceps and hamstring flexion and 5/5 on the left. Peripheral pulses are 1+ posterior tibial. No peripheral edema is noted bilaterally. Lower extremities are warm and dry. SKIN: Shows warm and dry, good turgor. No edema. No sores, rashes or bruising throughout. Procedure: Procedure: Options were discussed with the patient. Patient chart reviews his current medication regimen updated current review of systems updated today as well. We will proceed with a second in a series lumbar epidural steroid injection stable fluoroscopic guidance. Risks were discussed including but not limited to: Bleeding, infection, possibility of epidural hematoma and subsequent ne urological compromise, dural puncture, headaches, spinal cord and/or nerve damage, side effects of steroid medication, and poor results regarding pain control. Patient understands and wished to proceed. Patient return to the clinic in approximate 2 weeks for follow-up, was counseled return appointment, activity level, and side effects to be aware. Medication Injected: Med Injected: Procedure is lumbar epidural steroid injection under local anesthetic using sterile prep and drape at the L5-S1 level using C-arm fluoroscopic guidance in both AP and lateral views medications injected is 120 mg Depo-Medrol + 10 mL preservative-free normal saline and 2 mL contrast- condition at discharge is stable patient tolerated procedure well had no complications. Condition at Discharge: Condition at Discharge: Condition at discharge stable, patient tolerated procedure well and had no complications. REECE RANDALL MD September 17, 2020 11:00
--- NOTE | 2020-09-17 11:01 | PDOC4 ---
PROCEDURE Procedure Patient was consented for lumbar epidural steroid injection. Risks were dis cussed including but not limited to: Bleeding, infection, possibility of epidural hematoma and subsequent neurological compromise, dural puncture, headaches, spinal cord and/or nerve damage, side effects of steroid medication, and poor results regarding pain control. Patient understands and wished to proceed. Procedure is lumbar epidural steroid injection under local anesthetic using sterile prep and drape at the L5-S1 level using C-arm fluoroscopic guidance in both AP and lateral views medications injected is 120 mg Depo-Medrol + 10 mL preservative-free normal saline and 2 mL contrast- condition at discharge is stable patient tolerated procedure well had no complications. REECE RANDALL MD September 17, 2020 11:01
== END | disposition home or self-care (01) ==
LOC: PNCL 09:23
PROVIDERS: ATTEND Anesthesiology
DX: M54.16 Radiculopathy, lumbar region (principal); M96.1 Postlaminectomy syndrome, not elsewhere classified; F17.210 Nicotine dependence, cigarettes, uncomplicated; Z79.899 Other long term (current) drug therapy; Z72.89 Other problems related to lifestyle
CPT/HCPCS: 62323; J1030; J1040; Q9965

== ENCOUNTER → 2020-10-02 | Outpatient (CLI) | payer OTHER ==
[~2020-10-02] MED LIST changes: -IOHEXOL 180 MG/ML 10 ML VIAL. ONE; -methylPREDNISolone ACETATE 40 MG/ML VIAL. ONE; -methylPREDNISolone ACETATE 80 MG/ML VIAL. ONE
--- NOTE | 2020-10-02 10:52 | PDOC ---
Progress Note - Pain Clinic Date of Service: DOS: DATE: 10/02/20 TIME: 10:49 Diagnosis: Dx: Lumbar radiculopathy with lumbar postlaminectomy syndrome History or Present Illness: HPI: 50-year-old male returns for follow-up status post lumbar epidural steroid injection x2. Patient reports about 75% improvement after the first 2 weeks or so and the pain returning now in the low back and right lower extremity greater than left posterior gluteus posterior thigh posterior lateral thigh some in the anterior medial thigh as well but in the posterior calf radiating to the foot patient reports initially doing much better distance walking doing household act ivities travel with greater ease during working activities with greater ease sleeping better reports is beginning awakening from sleep again over the past few days about every 1-2 times a night patient reports no new motor or sensory deficits rates his pain is a 10 on scale 10 is worse over the past week 10 on average 10 its least and is a 10 today patient reports aching sharp dull tight shooting can be radiating constant worse with walking standing changing positions better with sitting or laying down but again awakened from sleep once again. Patient reports no new motor or sensory deficits no new bowel or bladder incontinence. Physical Exam: VS: Blood pressure is 133/85 pulse 76 respirations 18 temperature 98.0 F height 5 foot 1 his weight is 167 pounds PE: PHYSICAL EXAMINATION: GENERAL: The patient is awake, alert, oriented, appropriate, very pleasant demeanor HEENT: Shows normocephalic, atraumatic. Extraocular movements are intact and symmetrical. Oral cavity: Mucous membranes moist and pink. NECK: Shows anterior throat supple without palpable lymphadenopathy noted. Swa llow reflex symmetrical. CHEST: Shows normal on inspection. Breath sounds are clear bilaterally. HEART: Shows S1, S2 clear. No murmurs auscultated. ABDOMEN: Soft, nontender, nondistended. No palpable organomegaly is noted. No rebound or guarding demonstrated. BACK: Shows spine grossly in the midline. Normal-appearing cervical lordotic curvature. There is slightly increased thoracic kyphosis, some minor flattening of the lumbar lordotic curvature. Lumbar paraspinous muscles show symmetrical on inspection, on palpation shows some moderate tenderness diffusely throughout the upper, middle and lower distribution of the paraspinous muscles without specific trigger points, without radiation of pain. The patient has good rotational motion of the lumbar spine, both laterally as well as extension and flexion without significant difficulty. EXTREMITIES: Lower extremities show deep tendon reflexes 2 in the patellar and tendo calcaneus tendons. Motor exam is 4 on a scale of 5 with right dorsiflexion, extension, quadriceps and hamstring flexion and 5/5 on the left. Peripheral pulses are 1+ posterior tibial. No peripheral edema is noted bilaterally. Lower extremities are warm and dry. SKIN: Shows warm and dry, good turgor. No edema. No sores, rashes or bruising throughout. Procedure: Procedure: Options were discussed with patient. Patient chart was reviewed his current medication regimen updated current review of systems updated today as well. We will preauthorize patient for a third in the series lumbar epidural steroid injection she did very well with the first 2 pain returning in a radicular fashion following L5-S1 dermatomal distribution on the left lower extremity. In the meantime, patient will continue with stretching strength exercise at home as well as oral analgesics as currently. Once preauthorized, patient will return for translaminar approach L5-S1 lumbar epidural steroid injection with fluoroscopic guidance. Medication Injected: Med Injected: None Condition at Discharge: Condition at Discharge: Condition at discharge stable. REECE RANDALL MD October 02, 2020 10:52
== END | disposition home or self-care (01) ==
LOC: PNCL 09:41
PROVIDERS: ATTEND Anesthesiology
DX: M54.16 Radiculopathy, lumbar region (principal); M96.1 Postlaminectomy syndrome, not elsewhere classified; F17.210 Nicotine dependence, cigarettes, uncomplicated; Z79.899 Other long term (current) drug therapy; Z72.89 Other problems related to lifestyle
CPT/HCPCS: 99212; G0463

== ENCOUNTER → 2020-10-16 | Outpatient (CLI) | payer OTHER ==
[~2020-10-16] MED LIST changes: +NAPR500T8 PO
--- NOTE | 2020-10-16 10:35 | PDOC ---
Progress Note - Pain Clinic Date of Service: DOS: DATE: 10/16/20 TIME: 10:33 Diagnosis: Dx: Lumbar radiculopathy with lumbar postlaminectomy syndrome Right piriformis syndrome Right hip joint pain History or Present Illness: HPI: 50-year-old male returns for follow-up status post lumbar epidural steroid injections x2 most recently with about a 65% improvement but only for about 2 weeks or so after the injection patient reports his hip is his main complaint at this time on the right side is more painful in the right groin with weightbearing as well as the posterior gluteus and lateral thigh patient reports pain is changing since last visit is worse with walking especially walking up or down hills which he did some over the past weekend fairly extensively patient reports is a 10 on scale 10 at all times worst least and average is a 10 today patient scribes it as aching and dull radiating constant tingling burning cramping dull and sharp and aching patient reports no new motor or sensory deficits no new bowel or bladder incontinence or other complaints but significant pain right hip especially the right groin with weightbearing standing especially with climbing steps and putting all his weight on the right side. Physical Exam: VS: Blood pressure is 133/101 pulse 61 respirations 16 temperature 97.7 F height is 5 foot 9 inches weight is 166 pounds PE: PHYSICAL EXAMINATION: GENERAL: The patient is awake, alert, oriented, appropriate, very pleasant demeanor HEENT: Shows normocephalic, atraumatic. Extraocular movements are intact and symmetrical. Oral cavity: Mucous membranes moist and pink. Dentition is intact. NECK: Shows anterior throat supple without palpable lymphadenopathy noted. Swallow reflex symmetrical. CHEST: Shows normal on inspection. Breath sounds are clear bilaterally, no rales or rhonchi auscultated. HEART: Shows S1, S2 clear. No murmurs auscultated. ABDOMEN: Soft, nontender, nondistended. No palpable organomegaly is noted. No rebound or guarding demonstrated. BACK: Shows spine grossly in the midline. Normal-appearing cervical lordotic curvature. There is slightly increased thoracic kyphosis, some minor flattening of the lumbar lordotic curvature. Lumbar paraspinous muscles show symmetrical on inspection, on palpation shows some moderate tenderness diffusely throughout the upper, middle and lower distribution of the paraspinous muscles without specific trigger points, without radiation of pain. The patient has good rotational motion of the lumbar spine, both laterally as well as extension and flexion without significant difficulty. No tenderness over the spinous processes, sacrum or sacroiliac regions. EXTREMITIES: Lower extremities show deep tendon reflexes 2+ in the patellar and tendo calcaneus tendons. Motor exam is 5 on a scale of 5 with right dorsiflexion, extension, quadriceps and hamstring flexion and 4/5 on the left. Peripheral pulses are 1+ posterior tibial. No peripheral edema is noted bilaterally. Lower extremities are warm and dry to touch, equal in color and appearance. Patient does have a positive Luke's maneuver on the right side only with external rotation and posterior displacement of the right hip. Right side is negative. SKIN: Shows warm and dry, good turgor. No edema. No sores, rashes or bruising throughout. Procedure: Procedure: Options were discussed with patient. Patient's old chart was reviewed his his current medication regimen updated current review of systems updated today as well. We will send patient for x-rays of the bilateral hips as his pain has changed and with a positive Luke's maneuver on the right side. Once these were obtained we will plan on the next step regarding treatment. Medication Injected: Med Injected: None Condition at Discharge: Condition at Discharge: Condition at discharge is stable. REECE RANDALL MD Oct 16, 2020 10:35
== END | disposition home or self-care (01) ==
LOC: PNCL 09:43
PROVIDERS: ATTEND Anesthesiology
DX: M54.16 Radiculopathy, lumbar region (principal); M96.1 Postlaminectomy syndrome, not elsewhere classified; M25.551 Pain in right hip; F17.210 Nicotine dependence, cigarettes, uncomplicated; Z79.899 Other long term (current) drug therapy; Z98.890 Other specified postprocedural states
CPT/HCPCS: 99212; G0463

== ENCOUNTER → 2020-10-17 | Outpatient (CLI) | payer OTHER ==
--- NOTE | 2020-10-17 12:42 | RAD ---
XR HIP (WITH OR WITHOUT PELVIS) 1 VIEW History: Reason: RIGHT HIP JOINT PAIN, PIRIFORMIS SYNDROME PER PATIENT / Spl. Instructions: / Histor y: Technique: AP view the pelvis and 2 additional views of bilateral hips. Comparison: November 09, 2019 Findings: Normal alignment. No fracture. Mild left hip DJD. Impression: 1. Mild left hip DJD. Electronically signed by: Chu Bridges DO (10/17/2020 12:39 PM) HERSON
== END | disposition home or self-care (01) ==
LOC: RAD 09:31
PROVIDERS: ATTEND Anesthesiology
DX: M25.551 Pain in right hip (principal); M25.552 Pain in left hip; G57.01 Lesion of sciatic nerve, right lower limb; M16.12 Unilateral primary osteoarthritis, left hip; F17.210 Nicotine dependence, cigarettes, uncomplicated; Z79.899 Other long term (current) drug therapy
CPT/HCPCS: 73521

== ENCOUNTER → 2020-10-22 | Outpatient (CLI) | payer OTHER ==
[~2020-10-22] MED LIST changes: +IOHEXOL 180 MG/ML 10 ML VIAL. ONE; +methylPREDNISolone ACETATE 40 MG/ML VIAL. ONE; +methylPREDNISolone ACETATE 80 MG/ML VIAL. ONE
--- NOTE | 2020-10-22 13:01 | PDOC ---
Progress Note - Pain Clinic Date of Service: DOS: DATE: 10/22/20 TIME: 12:57 Diagnosis: Dx: Lumbar radiculopathy with lumbar postlaminectomy syndrome Right piriformis syndrome Right hip joint pain with osteoarthritis History or Present Illness: HPI: 50-year-old male returns follow-up status post lumbar epidural steroid injections x2 after his last visit about 65% improvement however pain is changed over his last visit and is more in the hip itself we got x-rays which showed some mild degenerative arthritis in the hips bilaterally but only mildly. Patient reports significant pain in the right hip right lower back into the posterior gluteus lateral thigh in the groin worse with walking standing specially climbing on stairs or steps or walking up a hill he feels the groin pain significantly he is limping noticeably today as well. Patient reports the pain is a 10 on scale 10 at all times worst least and average over the past week and is a 10 today. Patient was aching sharp dull tight shooting tingling burning cramping stabbing can be severe and constant and unbearable with walking. Patient reports no new motor or sensory deficits no new bowel or bladd er incontinence. Physical Exam: VS: Pressure is 126/88 pulse 79 respirations 16 temperature 98.4 F weight is 166 pounds PE: PHYSICAL EXAMINATION: GENERAL: The patient is awake, alert, oriented, appropriate, very pleasant demeanor HEENT: Shows normocephalic, atraumatic. Extraocular movements are intact and symmetrical. NECK: Shows anterior throat supple without palpable lymphadenopathy noted. Swallow reflex symmetrical. CHEST: Shows normal on inspection. Breath sounds are clear bilaterally. HEART: Shows S1, S2 clear. No murmurs auscultated. ABDOMEN: Soft, nontender, nondistended. No palpable organomegaly is noted. No rebound or guarding demonstrated. BACK: Shows spine grossly in the midline. Normal-appearing cervical lordotic curvature. There is slightly increased thoracic kyphosis, some minimal flattening of the lumbar lordotic curvature. Patient has well-healed surgical scar in the midline. Lumbar paraspinous muscles show symmetrical on inspection, on palpation shows some moderate tenderness diffusely throughout the upper, middle and lower distribution of the paraspinous muscles, firm and tender, but without specific trigger points, without radiation of pain. The patient has good rotational motion of the lumbar spine, both laterally as well as extension and flexion without significant difficulty. EXTREMITIES: Lower extremities show deep tendon reflexes 2+ in the patellar and tendo calcaneus tendons. Motor exam is 4 on a scale of 5 with right dorsiflexion, extension, quadriceps and hamstring flexion and 4/5 on the left. Peripheral pulses are 1+ posterior tibial. No peripheral edema is noted bilaterally. Lower extremities are warm and dry to touch, equal in color and appearance. Luke's maneuvers are positive on the right and negative on the left. SKIN: Shows warm and dry, good turgor. No edema. No sores, rashes or bruising throughout. Procedure: Procedure: Options discussed with patient. Patient chart was reviewed his current medication regimen updated current review of systems updated today as well. We will proceed with a third in the series lumbar epidural steroid injection today with fluoroscopic guidance. Risks were discussed including but not limited to: Bleeding, infection, possibility of epidural hematoma and subsequent neurological compromise, dural puncture, headaches, spinal cord and/or nerve damage, side effects of steroid medication, and poor results regarding pain control. Patient understands and wished to proceed. Patient will return to the clinic in approximate 2 weeks for follow-up, was counseled as to return ap pointment activity level and side effects to be aware of. We discussed the possibility that if he is not significantly better intra-articular hip joint injection but will require preauthorization for this. Patient does have significant tenderness with walking standing weightbearing and a positive Luke's maneuver on the right with some mild arthritic changes on plain films. Medication Injected: Med Injected: Procedure is lumbar epidural steroid injection under local anesthetic using sterile prep and drape at the L5-S1 level using C-arm fluoroscopic guidance in both AP and lateral views medications injected is 120 mg Depo-Medrol +10mL preservative-free normal saline and 2 mL contrast- condition at discharge is stable patient tolerated procedure well had no complications. Condition at Discharge: Condition at Discharge: Condition at discharge stable, patient alert the procedure well and had no complications. REECE RANDALL MD Oct 22, 2020 13:01
--- NOTE | 2020-10-22 13:01 | PDOC4 ---
PROCEDURE Procedure Patient was consented for lumbar epidural steroid injection. Risks were dis cussed including but not limited to: Bleeding, infection, possibility of epidural hematoma and subsequent neurological compromise, dural puncture, headaches, spinal cord and/or nerve damage, side effects of steroid medication, and poor results regarding pain control. Patient understands and wished to proceed. Procedure is lumbar epidural steroid injection under local anesthetic using sterile prep and drape at the L5-S1 level using C-arm fluoroscopic guidance in both AP and lateral views medications injected is 120 mg Depo-Medrol +10mL preservative-free normal saline and 2 mL contrast- condition at discharge is stable patient tolerated procedure well had no complications. REECE RANDALL MD Oct 22, 2020 13:01
== END | disposition home or self-care (01) ==
LOC: PNCL 08:06
PROVIDERS: ATTEND Anesthesiology
DX: M54.16 Radiculopathy, lumbar region (principal); M96.1 Postlaminectomy syndrome, not elsewhere classified; M16.11 Unilateral primary osteoarthritis, right hip; G47.01 Insomnia due to medical condition; F17.210 Nicotine dependence, cigarettes, uncomplicated; M48.061 Spinal stenosis, lumbar region without neurogenic claudication; Z79.899 Other long term (current) drug therapy; Z98.890 Other specified postprocedural states
CPT/HCPCS: 62323; J1030; J1040; Q9965

== ENCOUNTER → 2020-11-11 | Outpatient (CLI) | payer OTHER ==
[~2020-11-11] MED LIST changes: +BUPIVACAINE MPF 0.25% 10 ML VIAL. ONE; -methylPREDNISolone ACETATE 40 MG/ML VIAL. ONE
--- NOTE | 2020-11-11 14:29 | PDOC ---
Progress Note - Pain Clinic Date of Service: DOS: DATE: 11/11/20 TIME: 14:25 Diagnosis: Dx: Right hip joint pain with primary osteoarthritis Lumbar radiculopathy with lumbar postlaminectomy syndrome Right piriformis syndrome History or Present Illness: HPI: 50-year-old male returns to follow-up status post lumbar epidural steroid injections x3 and right piriformis injection patient did well with the epidural steroid injection with about a 65% improvement overall pain in the right hip though significant with weightbearing standing walking especially putting all his weight on his right leg such as climbing a stair or step with pain rating to the right groin and medial thigh patient reports is a 9 on scale 10 is worst least and average is a 9 today patient reports aching sharp dull tight shooting cramping stabbing burning radiating constant especially in the right groin with weightbearing patient reports is better with sitting or laying down generally does not awaken her from sleep at night even laying on the right side patient reports no new motor or sensory deficits no new bowel or bladder incontinence or other complaints. Patient is obtained preauthorization for right intra- articular hip joint injection as we discussed previously and would like to proceed today. Physical Exam: VS: Blood pressure is 06/08/1985 pulse 88 respirations 18 temperature is 98.6 3 Fahrenheit weight 165 pounds PE: PHYSICAL EXAMINATION: GENERAL: The patient is awake, alert, oriented, appropriate, very pleasant in demeanor HEENT: Shows normocephalic, atraumatic. Extraocular movements are intact and symmetrical. NECK: Shows anterior throat supple without palpable lymphadenopathy noted. Swallow reflex symmetrical. CHEST: Shows normal on inspection. Breath sounds are clear bilaterally. HEART: Shows S1, S2 clear. ABDOMEN: Soft, nontender, nondistended. BACK: Shows spine grossly in the midline. Normal-appearing cervical lordotic curvature. There is slightly increased thoracic kyphosis, some minor flattening of the lumbar lordotic curvature. Lumbar paraspinous muscles show symmetrical on inspection, on palpation shows some moderate tenderness diffusely throughout the upper, middle and lower distribution of the paraspinous muscles without specific trigger points, without radiation of pain. The patient has good rotational motion of the lumbar spine, both laterally as well as extension and flexion without significant difficulty. No tenderness over the spinous processes, sacrum or sacroiliac regions. EXTREMITIES: Lower extremities show deep tendon reflexes 2 in the patellar and tendo calcaneus tendons. Motor exam is 4 on a scale of 5 with right dorsiflexion, extension, quadriceps and hamstring flexion and 5/5 on the left. Peripheral pulses are 1+ posterior tibial. No peripheral edema is noted bilaterally. Lower extremities are warm and dry to touch, equal in color and appearance. Patient has positive Luke's maneuver on the right side only with posterior displacement and exterior rotation. SKIN: Shows warm and dry, good turgor. No edema. No sores, rashes or bruising throughout. Procedure: Procedure: Options were discussed with the patient patient chart reviews his current medication regimen updated current review of systems updated today as well. We will proceed with a right intra-articular hip to injection today with fluoroscopic guidance. Risk were discussed including but not limited to bleeding infection possibility of intravascular injection sequelae spread of local anesthetic numbness side effects steroid medication exposure fluoroscopy and portals rating pain control. Patient understands wishes to proceed. Patient will return to the clinic in approximate 4 weeks for follow-up, was counseled as return appointment activity level and side effects to be aware of. Medication Injected: Med Injected: Under sterile prep and drape patient in supine position patient's right hip was visualized using C-arm fluoroscopic guidance. Using 1% lidocaine area lateral to the hip joint was anesthetized and using direct fluoroscopic vision 22-gauge 5 inch Quincke needle with stylette was then advanced under direct fluoroscopic guidance into the right intra-articular hip joint. 3 cc of contrast was used to show good spread within the hip joint itself and without washout or uptake. At this time, 3 cc 0.25% bupivacaine and 80 mg Depo-Medrol was then injected into the hip joint. Needle was withdrawn and sterile bandage was applied. Patient tolerated procedure well and had no complications. Condition at Discharge: Condition at Discharge: Condition at discharge stable, patient already procedure well and had no complications. REECE RANDALL MD Nov 11, 2020 14:29
--- NOTE | 2020-11-11 14:29 | PDOC4 ---
Procedure Note: Procedure Note: Patient was consented for right intra-articular hip joint injection. Risks were discussed including but not limited to bleeding infection possibility of intravascular injection sequelae spread of local anesthetic numbness side effects steroid medication exposure to fluoroscopy and poor results regarding pain control. Patient understands wished to proceed. Under sterile prep and drape patient in supine position patient's right hip was visualized using C-arm fluoroscopic guidance. Using 1% lidocaine area lateral to the hip joint was anesthetized and using direct fluoroscopic vision 22-gauge 5 inch Quincke needle with stylette was then advanced under direct fluoroscopic guidance into the right intra-articular hip joint. 3 cc of contrast was used to show good spread within the hip joint itself and without washout or uptake. At this time, 3 cc 0.25% bupivacaine and 80 mg Depo-Medrol was then injected into the hip joint. Needle was withdrawn and sterile bandage was applied. Patient tolerated procedure well and had no complications. REECE RANDALL MD Nov 11, 2020 14:29
== END | disposition home or self-care (01) ==
LOC: PNCL 13:00
PROVIDERS: ATTEND Anesthesiology
DX: M16.11 Unilateral primary osteoarthritis, right hip (principal); M54.16 Radiculopathy, lumbar region; M96.1 Postlaminectomy syndrome, not elsewhere classified; F17.210 Nicotine dependence, cigarettes, uncomplicated; Z79.899 Other long term (current) drug therapy; Z98.890 Other specified postprocedural states
CPT/HCPCS: 20610; 77002; J1040; J3490; Q9965

== ENCOUNTER → 2020-12-09 | Outpatient (CLI) | payer OTHER ==
[~2020-12-09] MED LIST changes: -BUPIVACAINE MPF 0.25% 10 ML VIAL. ONE; -IOHEXOL 180 MG/ML 10 ML VIAL. ONE; -methylPREDNISolone ACETATE 80 MG/ML VIAL. ONE
--- NOTE | 2020-12-09 09:13 | PDOC ---
Progress Note - Pain Clinic Date of Service: DOS: DATE: 12/09/20 TIME: 09:10 Diagnosis: Dx: Lumbar radiculopathy with lumbar postlaminectomy syndrome Right piriformis syndrome Right hip joint pain with osteoarthritis History or Present Illness: HPI: 50-year-old male returns for follow-up status post right intra-articular hip joint injection patient reports about 70% improvement in the right hip joint for several weeks however the pain returned after he was mowing 3 different yards in 1 day and then took his children to the zoo and walked for the entire day and then went swimming the next day patient reports over 3-day. The pain returned as he feels he overdid it on the right hip is now radiating the right groin into the right anterior medial thigh describes aching sharp dull tight shooting in the right leg tingling burning cramping stabbing can be constant severe patient rates is a 10 on scale 10 at all times in the last week worst least and average today. Patient reports prior to that he was walking much greater ease and comfort with greater ease sitting for longer periods walking and sleeping better at night. Patient reports no symptoms on the left side low back is doing better as well and continues to do fairly well with the right hip is his main complaint. Physical Exam: VS: Blood pressure is 140/99 pulse 84 respirations 18 temperature 98.4 F height is 5 feet 9 inches weight is 171 pounds PE: PHYSICAL EXAMINATION: GENERAL: The patient is awake, alert, oriented, appropriate, very pleasant in demeanor HEENT: Shows normocephalic, atraumatic. Extraocular movements are intact and symmetrical. Oral cavity: Mucous membranes moist and pink. Dentition is intact. NECK: Shows anterior throat supple without palpable lymphadenopathy noted. Swallow reflex symmetrical. CHEST: Shows normal on inspection. Breath sounds are clear bilaterally no rales rhonchi or wheezes auscultated. HEART: Shows S1, S2 clear. No murmurs auscultated. ABDOMEN: Soft, nontender, nondistended. No palpable organomegaly is noted. No rebound or guarding demonstrated. BACK: Shows spine grossly in the midline. Normal-appearing cervical lordotic curvature. There is slightly increased thoracic kyphosis, some minor flattening of the lumbar lordotic curvature. Lumbar paraspinous muscles show symmetrical on inspection, on palpation shows some moderate tenderness diffusely throughout the upper, middle and lower distribution of the paraspinous muscles without specific trigger points, without radiation of pain. The patient has good rotational motion of the lumbar spine, both laterally as well as extension and flexion without significant difficulty. EXTREMITIES: Lower extremities show deep tendon reflexes 2+ in the patellar and tendo calcaneus tendons. Motor exam is 4 on a scale of 5 with right dorsiflexion, extension, quadriceps and hamstring flexion and 5/5 on the left. Peripheral pulses are 1 posterior tibial. No peripheral edema is noted bilaterally. Lower extremities are warm and dry to touch, equal in color and appearance. Luke's maneuver is positive on the right with external rotation and posterior displacement of the right hip left side is negative. SKIN: Shows warm and dry, good turgor. No edema. No sores, rashes or bruising throughout. Procedure: Procedure: Options were discussed with the patient. Patient chart was reviewed his his cu rrent medication regimen updated current review of systems updated today as well. We will have patient return in approximately 2 weeks for repeat a right intra-articular hip joint injection as he did very well with the first 1 gave him extra time to clear the steroid from the previous injection. Meantime patient continue with stretching strength exercises physical therapy exercise as well as pool use for these exercises as he is doing currently. Medication Injected: Med Injected: None Condition at Discharge: Condition at Discharge: Condition at discharge is stable. REECE RANDALL MD Dec 09, 2020 09:13
== END | disposition home or self-care (01) ==
LOC: PNCL 08:10
PROVIDERS: ATTEND Anesthesiology
DX: M54.16 Radiculopathy, lumbar region (principal); M96.1 Postlaminectomy syndrome, not elsewhere classified; M16.11 Unilateral primary osteoarthritis, right hip; M40.294 Other kyphosis, thoracic region; Z79.899 Other long term (current) drug therapy
CPT/HCPCS: 99212; G0463

== ENCOUNTER → 2020-12-25 | Outpatient (CLI) | payer OTHER ==
[~2020-12-25] MED LIST changes: +BUPIVACAINE MPF 0.25% 10 ML VIAL. ONE; +IOHEXOL 180 MG/ML 10 ML VIAL. ONE; +methylPREDNISolone ACETATE 80 MG/ML VIAL. ONE
--- NOTE | 2020-12-25 09:21 | PDOC ---
Progress Note - Pain Clinic Date of Service: DOS: DATE: 12/25/20 TIME: 09:18 Diagnosis: Dx: Lumbar radiculopathy with lumbar postlaminectomy syndrome Right piriformis syndrome Right hip joint pain with osteoarthritis History or Present Illness: HPI: 50-year-old male returns for follow-up status post right intra-articular hip joint injection 11/11/2020 with very good results but then was overusing his leg with excessive walking and return with significant pain in the right hip and right groin with walking standing patient reports is still the same in the right leg with right groin radiation with putting all the weight on his right side standing on a stair stepper or standing on his right leg exclusively patient reports 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 Patient reports is a 10 on scale 10 at all times worst least and average is a 10 today describes aching sharp dull tight shooting aching into the groin burning in the groin as well as cramping patient reports no bowel or bladder incontinence no new motor or sensory deficits. Patient reports wakes up to sleep to 3 times a night after the injection in October he did have about 70% improvement but the pain returned after excessive walking and now standing for prolonged periods. Physical Exam: VS: Blood pressure is 150/97 pulse 69 respirations 18 temperature 97 Fahrenheit height 5 feet 9 inches weight is 169 pounds PE: PHYSICAL EXAMINATION: GENERAL: The patient is awake, alert, oriented, appropriate, very pleasant in d emeanor HEENT: Shows normocephalic, atraumatic. Extraocular movements are intact and symmetrical. Oral cavity: Mucous membranes moist and pink. Dentition is intact. NECK: Shows anterior throat supple without palpable lymphadenopathy noted. Swallow reflex symmetrical. CHEST: Shows normal on inspection. Breath sounds are clear bilaterally, distant but no rales or rhonchi. HEART: Shows S1, S2 clear. No murmurs auscultated. ABDOMEN: Soft, nontender, nondistended. No palpable organomegaly is noted. No rebound or guarding demonstrated. BACK: Shows spine grossly in the midline. Normal-appearing cervical lordotic curvature. There is slightly increased thoracic kyphosis, some minor flattening of the lumbar lordotic curvature. Lumbar paraspinous muscles show symmetrical on inspection, on palpation shows some moderate tenderness diffusely throughout the upper, middle and lower distribution of the paraspinous muscles without specific trigger points, without radiation of pain. The patient has good rotational motion of the lumbar spine, both laterally as well as extension and flexion without significant difficulty. No tenderness over the spinous processes, sacrum or sacroiliac regions. EXTREMITIES: Lower extremities show deep tendon reflexes 2+ in the patellar and tendo calcaneus tendons. Motor exam is 4 on a scale of 5 with right dorsiflexion, extension, quadriceps and hamstring flexion and []/5 on the left. Peripheral pulses are 1+ posterior tibial. No peripheral edema is noted bilaterally. Lower extremities are warm and dry to touch, equal in color and appearance. Patient has positive Luke's maneuver on the right side only with external rotation and posterior displacement of the right hip with significant pain left side is negative. SKIN: Shows warm and dry, good turgor. No edema. No sores, rashes or bruising throughout. Procedure: Procedure: Options were discussed with the patient. Patient's old chart was reviewed his current medication regimen updated current review of systems updated today as well. We will proceed with a right intra-articular hip joint traction today with fluoroscopic guidance. Risk discussed including but not limited to bleeding infection possible intravascular ejection sequelae spread local anesthetic numbness side effects steroid medications post arthroscopy and portals regarding pain control. Patient understands wished to proceed. Medication Injected: Med Injected: Under sterile prep and drape patient in supine position patient's right hip was visualized using C-arm fluoroscopic guidance. Using 1% lidocaine area lateral to the hip joint was anesthetized and using direct fluoroscopic vision 22-gauge 5 inch Quincke needle with stylette was then advanced under direct fluoroscopic guidance into the right intra-articular hip joint. 3 cc of contrast was used to show good spread within the hip joint itself and without washout or uptake. At this time, 3 cc 0.25% bupivacaine and 80 mg Depo-Medrol was then injected into the hip joint. Needle was withdrawn and sterile bandage was applied. Patient tolerated procedure well and had no complications. Condition at Discharge: Condition at Discharge: Condition at discharge stable, patient tolerated the procedure well and had no complications. REECE RANDALL MD Dec 25, 2020 09:21
--- NOTE | 2020-12-25 09:22 | PDOC4 ---
Procedure Note: ICD 10 Code: ICD 10 Code: M2 5.551 M16.11 Procedure Note: Patient was consented for right intra-articular hip joint injection with fluoroscopic guidance. Risk were discussed including but not limited to bleeding infection possibility of intravascular injection sequelae spread of local anesthetic numbness side effects steroid medication exposure fluoroscopy and portals regarding pain control. Patient understands wished to proceed. Under sterile prep and drape patient in supine position patient's right hip was visualized using C-arm fluoroscopic guidance. Using 1% lidocaine area lateral to the hip joint was anesthetized and using direct fluoroscopic vision 22-gauge 5 inch Quincke needle with stylette was then advanced under direct fluoroscopic guidance into the right intra-articular hip joint. 3 cc of contrast was used to show good spread within the hip joint itself and without washout or uptake. At this time, 3 cc 0.25% bupivacaine and 80 mg Depo-Medrol was then injected into the hip joint. Needle was withdrawn and sterile bandage was applied. Patient tolerated procedure well and had no complications. REECE RANDALL MD Dec 25, 2020 09:22
== END ==
LOC: PNCL 08:24
PROVIDERS: ATTEND Anesthesiology
DX: M16.11 Unilateral primary osteoarthritis, right hip (principal); M25.551 Pain in right hip
CPT/HCPCS: 20610; 77002; J1040; J3490; Q9965

== ENCOUNTER → 2021-01-09 | Outpatient (CLI) | payer OTHER ==
[~2021-01-09] MED LIST changes: -BUPIVACAINE MPF 0.25% 10 ML VIAL. ONE; -IOHEXOL 180 MG/ML 10 ML VIAL. ONE; -methylPREDNISolone ACETATE 80 MG/ML VIAL. ONE
--- NOTE | 2021-01-09 10:13 | RAD ---
EXAM: Pelvis and right hip, 3 views; right knee, 2 views. HISTORY: Pain. COMPARISON: None. FINDINGS: Pelvis and right hip: A frontal view the pelvis and frontal and frog-leg views of the right hip are o btained. There is no fracture, dislocation or subluxation. The femoral heads are normal in configurat ion. There is a benign osseous excrescence along the right anterior inferior iliac spine. Right knee: 2 views of the right knee are obtained. There is no no acute fracture, dislocation or sub luxation. There is a corticated ossicle superior to the anterior tibial tubercle. There is also a cor ticated ossicle along the lateral aspect of the patella which is developmental in etiology. There is no joint effusion. IMPRESSION: No acute osseous finding. Electronically signed by: Starla Shah MD (01/09/2021 10:10 AM) [id number]
== END ==
LOC: RAD 09:09
PROVIDERS: ATTEND Family Medicine
DX: Z02.71 Encounter for disability determination (principal); M25.561 Pain in right knee; M25.551 Pain in right hip
CPT/HCPCS: 73502; 73560

== ENCOUNTER 2021-01-27 00:39 | Emergency (ER) | payer OTHER ==
[~2021-01-27] VITALS: Ht 175.3 cm; Wt 75.0 kg
--- NOTE | 2021-01-27 00:59 | EKG ---
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
--- NOTE | 2021-01-27 01:05 | PHYS DOC ---
Past Medical History Past Medical History: Other Additional Past Medical Histor: multiple back injuries Past Surgical History: Other Additional Past Surgical Histo: back surgery x2, neck surgery Smoking Status: Current Some Day Smoker Alcohol Use: Occasionally General Adult EDM: Chief Complaint: CHEST PAIN HPI: HPI: Patient is a 50 year old male presents with a chief complaint of chest pain. Patient states he has had chest pain on and off for 2 and half weeks. Patient states he takes 1800 mg of ibuprofen at 1 time daily. Patient states chest pain is located in left chest that comes and goes lasting for seconds then resolves. Patient denies any associated shortness of breath. Patient states pain is reproduced with certain types of movements. Patient denies any change in stool particularly bloody stools denies any nausea or vomiting. Review of Systems: Review of Systems: Review of systems: Constitutional symptoms- No fever, no chills. Eyes- No Discharge, No Visual Loss Respiratory symptoms- No shortness of breath, No wheezing, No Dyspnea on Exertion Cardiovascular Systems; Positive chest pain, No Palpitations, No syncope Gastrointestinal symptoms: NO abdominal pain, no nausea, no vomiting or diarrhea. Genitourinary symptoms: No dysuria. Musculoskeletal symptoms: No back pain No extremity pain. NEUROLOGICAL Symptoms: No headache, no generalized weakness; No focal Weakness Skin: No rash. Heart Score: C/O Chest Pain: Yes HEART Score for Chest Pain: HEART Score for Chest Pain Response (Comments) Value History Slighlty/Non-Suspicious 0 ECG Normal 0 Age >45 - < 65 1 Risk Factors No Risk Factors 0 Troponin < Normal Limit 0 Total 1 Risk Factors: Risk Factors: DM, Current or recent (<one month) smoker, HTN, HLP, family history of CAD, obesity. Risk Scores: Score 0 - 3: 2.5% MACE over next 6 weeks - Discharge Home Score 4 - 6: 20.3% MACE over next 6 weeks - Admit for Clinical Observation Score 7 - 10: 72.7% MACE over next 6 weeks - Early Invasive Strategies Allergies: Allergies: Allergies Coded Allergies Type Severity Reaction Last Updated Verified No Known Drug Allergies 10/23/19 No Physical Exam: PE: General: alert, no acute distress. Skin: warm, dry and intact, no erythema, no rash. HENT: bilateral external ears normal, oropharynx moist, nose normal. Head:: Normocephalic, atraumatic. Neck: Trachea midline. Eyes: EOMI, Normal conjunctiva, No drainage CARDIOVASCULAR: Regular rate and rhythm RESPIRATORY: No respiratory distress Back: Full range of motion. MUSCULOSKELETAL: Full range of motion of bilateral upper and lower extremities. GASTROINTESTINAL: Abdomen soft without rebound or guarding. NEUROLOGICAL: Alert and noted to person, place and time. No neurological deficits observed Psychiatric: Cooperative. Normal judgment EKG: EKG: [] Performed at 0047 Rate [address] Normal sinus rhythm No ST elevation No ST depression No acute [place] Kranthi EKG performed at 119 Rate 57 No acute ischemic changes No change from previous Radiology/Procedures: Radiology/Procedures: [] Impression: COMPARISON: None INDICATION:50 years, Male, chest pain. FINDINGS: Normal cardiomediastinal silhouette. No focal consolidation. No pleural effusion or pneumothorax. No acute osseous process. IMPRESSION: No acute cardiopulmonary process. Course & Med Decision Making: Course & Med Decision Making Pertinent Labs and Imaging studies reviewed. (See chart for details) [] Dragon Disclaimer: Dragon Disclaimer: This electronic medical record was generated, in whole or in part, using a voice recognition dictation system. Departure Departure Impression: Primary Impression: Chest pain Disposition: HOME / SELF CARE / HOMELESS Condition: STABLE Referrals: Erum PERES MD (PCP) Patient Instructions: Chest Pain (Nonspecific) AMEE JACK DO Jan 27, 2021 01:05
[2021-01-27 01:27] LABS: BASO # 0.1 x10^3/uL (0.0-0.2); BASO % 1 % (0-3); EOS # 0.4 x10^3/uL (0.0-0.7); EOS % 6 % (0-3); HEMATOCRIT 38.7 % (39.0-53.0); HEMOGLOBIN 12.8 g/dL (13.0-17.5); LYMPH # 2.1 x10^3/uL (1.0-4.8); LYMPH % 33 % (24-48); MEAN CORPUSCULAR HEMOGLOBIN 31 pg (25-35); MEAN CORPUSCULAR HGB CONC 33 g/dL (31-37); MEAN CORPUSCULAR VOLUME 94 fL (79-100); MONO # 0.5 x10^3/uL (0.0-1.1); MONO % 8 % (0-9); NEUT # 3.3 x10^3/uL (1.8-7.7); NEUT % 52 % (31-73); PLATELET COUNT 267 x10^3/uL (140-400); RED BLOOD COUNT 4.14 x10^6/uL (4.30-5.70); RED CELL DISTRIBUTION WIDTH 12.5 % (11.5-14.5); WHITE BLOOD COUNT 6.4 x10^3/uL (4.0-11.0)
--- NOTE | 2021-01-27 01:33 | RAD ---
EXAMINATION: Chest radiograph. VIEWS: Single AP view of the chest COMPARISON: None INDICATION:50 years, Male, chest pain. FINDINGS: Normal cardiomediastinal silhouette. No focal consolidation. No pleural effusion or pneumothorax. No acute osseous process. IMPRESSION: No acute cardiopulmonary process. Electronically signed by: Kiran Ta DO (01/27/2021 1:30 AM) [facility]
[2021-01-27 01:34] LABS: CALCIUM 8.9 mg/dL (8.5-10.1); CREATININE 1.2 mg/dL (0.7-1.3); GFR 77.9; POTASSIUM 4.1 mmol/L (3.5-5.1)
[2021-01-27 01:40] LABS: ALBUMIN 3.8 g/dL (3.4-5.0); ALBUMIN/GLOBULIN RATIO 1.1 (1.0-1.7); TOTAL BILIRUBIN 0.4 mg/dL (0.2-1.0); TOTAL PROTEIN 7.2 g/dL (6.4-8.2)
[2021-01-27 01:45] VITALS: BP 143/81
--- NOTE | 2021-01-27 02:04 | EKG ---
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
== END 2021-01-27 02:05 | disposition home or self-care (01) ==
LOC: ER 00:39
DX: R07.89 Other chest pain (principal); F17.200 Nicotine dependence, unspecified, uncomplicated
CPT/HCPCS: 36415; 71045; 80053; 84484; 85025; 93005; 99285-25